=== PATIENT | male | born 1970 | race Caucasian/White ===

== ENCOUNTER 2017-03-05 14:13 | Emergency (ER) | payer BC ==
[2017-03-05 14:24] VITALS: BP 107/65
--- NOTE | 2017-03-05 14:47 | UC ---
Cardiac HPI - HPI Summary HPI Summary: This is a 46 yo gentleman with a smoking history and hypothyroidism who presents with c/o CP. He sustained a fall early Sat am where he tripped and fell into his metal bed frame, striking the frame with the L side of his chest. He reports some c/o SOB, but seems to be mostly related to pleuritic pain. He denies cough, abd pain, n/v. - History of Current Complaint Chief Complaint: UCChestPain Stated Complaint: CHEST INJURY S/P FALL - Allergy/Home Medications Allergies/Adverse Reactions: Allergies Allergy/AdvReac Type Severity Reaction Status Date / Time No Known Allergies Allergy Verified 03/05/17 14:24 PMH/Surg Hx/FS Hx/Imm Hx Endocrine History: Hypothyroidism Other History Of: Negative For: HIV, Hepatitis B, Hepatitis C, Anticoagulant Therapy - Surgical History Surgical History: None - Family History Known Family History: Positive: Cardiac Disease, Hypertension - Social History Alcohol Use: Occasionally Alcohol Amount: 1 can of beer qd Substance Use Type: None Smoking Status (MU): Light Every Day Tobacco Smoker Type: Cigarettes Amount Used/How Often: 3 CIGS per day Length of Time of Smoking/Using Tobacco: 30yrs When Did the Patient Quit Smoking/Using Tobacco: PT CURRENTLY USING CHANTIX Household Exposure Type: Cigarettes Review of Systems Constitutional: Negative Skin: Negative Eyes: Negative ENT: Negative Respiratory: Shortness Of Breath Cardiovascular: Negative Gastrointestinal: Negative Genitourinary: Negative Motor: Negative Neurovascular: Negative Musculoskeletal: Negative Neurological: Negative Psychological: Negative All Other Systems Reviewed And Are Negative: Yes Physical Exam Triage Information Reviewed: Yes Appearance: Well-Appearing Vital Signs: Initial Vital Signs Temp 98.9 F 03/05/17 14:21 Pulse 81 03/05/17 14:21 Resp 14 03/05/17 14:21 BP 107/65 03/05/17 14:21 Pulse Ox 99 03/05/17 14:21 Vital Signs Reviewed: Yes Neck: Positive: Supple, Nontender Respiratory: Positive: Normal breath sounds, Other: - TTP over L chest wall. Negative: Respiratory distress Cardiovascular: Positive: RRR, No Murmur Abdomen Description: Positive: Nontender Diagnostics - Laboratory Diagnostic Studies Completed/Ordered: Rib/CXR - No fracture or pneumothorax, NAD - Assessment/Plan Course Of Treatment: This is a 46 yo gentleman with h/o smoking who presented with c/o L sided CP after sustaining a fall ~2d prior. XR neg for fx and area was TTP. Recommend treating for chest wall pain, no evidence of cardiothoracic disease - Differential Diagnoses - Chest Pain Differential Diagnosis/HQI/PQRI: Angina, Chest Wall, GI Disease - Clinical Impression Provider Diagnoses: 1. Chest wall contusion - treat symptomatically Discharge - Discharge Plan Condition: Stable Disposition: HOME Prescriptions: Hydrocodone-Acetaminophen [Hydrocodone/Acetaminophen 5-325 mg] 1 tab PO Q6H PRN #20 tab MDD 4 tabs PRN Reason: Pain Patient Education Materials: Chest Wall Pain (ED) Referrals: No Primary Care Phys,NOPCP [Primary Care Provider] - Additional Instructions: Activity: As tolerated Instructions: 1. Apply ice to painful area 2. Use ibuprofen as needed for pain relief 3. Use additional pain medication if needed, but do not drive or mix with alcohol
--- NOTE | 2017-03-05 15:09 | RAD ---
Indication: LEFT anterior lower rib pain post fall. History of tobacco use. Comparison: February 20, 2015 Technique: Dual energy PA chest and 3 view LEFT unilateral rib series. Report: Elevated lung volumes and rarefaction of the interstitial markings. Multiple small calcified granulomas noted without change. No suspicious focal pulmonary lesion, alveolar consolidation, pleural effusion, pneumothorax. The heart, pulmonary vasculature, and mediastinal contours are unremarkable Skin marker noted at the level of the LEFT sixth rib laterally. No conspicuous LEFT rib fracture or soft tissue contour abnormality evident. IMPRESSION: 1. No LEFT rib fracture or pneumothorax evident. 2. Stigmata of obstructive lung disease and previous granulomatous disease.
== END 2017-03-05 15:32 | disposition home or self-care (01) ==
LOC: UCCORT 14:13
DX: S20.212A Contusion of left front wall of thorax, initial encounter (principal); W01.190A Fall on same level from slipping, tripping and stumbling with subsequent striking against furniture, initial encounter; Y92.9 Unspecified place or not applicable; F17.210 Nicotine dependence, cigarettes, uncomplicated; R91.8 Other nonspecific abnormal finding of lung field
CPT/HCPCS: 99212; G0463

== ENCOUNTER 2017-08-18 14:29 | Emergency (ER) | payer SELFPAY | END 2017-08-18 15:37 | disposition left against medical advice (07) | LOC: UCCORT 14:29 | DX: R09.89 Other specified symptoms and signs involving the circulatory and respiratory systems (principal); Z53.21 Procedure and treatment not carried out due to patient leaving prior to being seen by health care provider ==

== ENCOUNTER 2017-08-19 14:11 | Emergency (ER) | payer BC ==
[2017-08-19 14:41] VITALS: BP 104/72
--- NOTE | 2017-08-23 20:53 | UC ---
Throat Pain/Nasal Michi HPI - HPI Summary HPI Summary: 89 year old presents with sinus congestion, cough and sore throat. - History of Current Complaint Chief Complaint: UCRespiratory Stated Complaint: CHEST CONGESTION/SINUS/COUGH Time Seen by Provider: 08/19/17 14:24 Hx Obtained From: Patient Onset/Duration: Sudden Onset Severity: Moderate Pain Intensity: 0 Pain Scale Used: 0-10 Numeric Cough: Nonproductive Associated Signs & Symptoms: Positive: Dysphagia - Allergies/Home Medications Allergies/Adverse Reactions: Allergies Allergy/AdvReac Type Severity Reaction Status Date / Time No Known Allergies Allergy Verified 08/19/17 14:41 PMH/Surg Hx/FS Hx/Imm Hx Previously Healthy: Yes Other History Of: Negative For: HIV, Hepatitis B, Hepatitis C, Anticoagulant Therapy - Surgical History Surgical History: None - Family History Known Family History: Positive: Cardiac Disease, Hypertension - Social History Alcohol Use: Daily Alcohol Amount: 1 can of beer qd Substance Use Type: None Smoking Status (MU): Light Every Day Tobacco Smoker Type: Cigarettes Amount Used/How Often: 3 CIGS per day Length of Time of Smoking/Using Tobacco: 30yrs When Did the Patient Quit Smoking/Using Tobacco: PT CURRENTLY USING CHANTIX Household Exposure Type: Cigarettes Review of Systems Constitutional: Negative Skin: Negative Eyes: Negative ENT: Sore Throat, Nasal Discharge, Sinus Congestion, Sinus Pain/Tenderness Respiratory: Negative Cardiovascular: Negative Gastrointestinal: Negative Genitourinary: Negative Motor: Negative Neurovascular: Negative Musculoskeletal: Negative Neurological: Negative Psychological: Negative All Other Systems Reviewed And Are Negative: Yes Physical Exam Triage Information Reviewed: Yes Vital Signs: Initial Vital Signs Temp 37.7 C 08/19/17 14:38 Pulse 92 08/19/17 14:38 Resp 18 08/19/17 14:38 BP 104/72 08/19/17 14:38 Pulse Ox 99 08/19/17 14:38 Vital Signs Reviewed: Yes Eye Exam: Normal ENT: Positive: Pharyngeal erythema, Nasal congestion, Nasal drainage Dental Exam: Normal Neck exam: Normal Neck: Positive: 1 Respiratory: Positive: Rhonchi, Wheezing Cardiovascular Exam: Normal Abdominal Exam: Normal Musculoskeletal Exam: Normal Neurological Exam: Normal Psychological Exam: Normal Skin Exam: Normal Throat Pain/Nasal Course/Dx - Differential Dx/Diagnosis Provider Diagnoses: sinusitis. cough. post nasal drip Discharge - Discharge Plan Condition: Stable Disposition: HOME Prescriptions: Azithromyxin RUDY (NF) [Z-Rudy (Zithromax) 250 mg tabs #6] 2 tab PO .TODAY, THEN 1 DAILY #6 tab Guaifenesin-Codeine [Cheratussin AC] 1 teasp PO Q8H PRN #120 ml MDD 15 ml PRN Reason: Cough LoraTADine TAB(NF) [Claritin 10 MG TAB(NF)] 10 mg PO DAILY #30 tab Methylprednisolone [Medrol Dosepak 4 MG*] 4 mg PO .SEE RUDY INSTRUCTION #21 tab Patient Education Materials: Sinusitis (ED), Acute Cough (ED) Referrals: No Primary Care Phys,NOPCP [Primary Care Provider] -
== END 2017-08-19 14:55 | disposition home or self-care (01) ==
LOC: UCCORT 14:11
DX: J32.9 Chronic sinusitis, unspecified (principal); R05 Cough; J02.9 Acute pharyngitis, unspecified; F17.210 Nicotine dependence, cigarettes, uncomplicated
CPT/HCPCS: 99212; G0463

== ENCOUNTER 2017-09-06 11:05 | Emergency (ER) | payer BC ==
[2017-09-06 11:18] VITALS: BP 113/72
--- NOTE | 2017-09-06 11:48 | UC ---
Respiratory Complaint HPI - HPI Summary HPI Summary: 47 yo male with cough x 3 weeks now with right sided CP can't lay on right side due to pain no f/c no SOB - History of Current Complaint Chief Complaint: UCGeneralIllness Stated Complaint: RIB COMPAINT Time Seen by Provider: 09/06/17 11:27 Hx Obtained From: Patient Onset/Duration: Gradual Onset, Lasting Weeks Timing: Constant Severity Initially: Mild Severity Currently: Moderate Pain Intensity: 7 Pain Scale Used: 0-10 Numeric Character: Cough: Nonproductive Aggravating Factors: Nothing - Allergies/Home Medications Allergies/Adverse Reactions: Allergies Allergy/AdvReac Type Severity Reaction Status Date / Time No Known Allergies Allergy Verified 08/19/17 14:41 PMH/Surg Hx/FS Hx/Imm Hx Previously Healthy: Yes Other History Of: Negative For: HIV, Hepatitis B, Hepatitis C, Anticoagulant Therapy - Surgical History Surgical History: None - Family History Known Family History: Positive: Cardiac Disease, Hypertension, Other - dad - pancreas [place] - Social History Alcohol Use: Daily Alcohol Amount: 1 can of beer qd Substance Use Type: None Smoking Status (MU): Light Every Day Tobacco Smoker Type: Cigarettes Amount Used/How Often: 3 CIGS per day Length of Time of Smoking/Using Tobacco: 30yrs When Did the Patient Quit Smoking/Using Tobacco: PT CURRENTLY USING CHANTIX Household Exposure Type: Cigarettes Review of Systems Constitutional: Negative Skin: Negative Eyes: Negative ENT: Negative Respiratory: Cough Cardiovascular: Chest Pain Gastrointestinal: Negative Genitourinary: Negative Motor: Negative Neurovascular: Negative Musculoskeletal: Negative Neurological: Negative Psychological: Negative Is Patient Immunocompromised?: No All Other Systems Reviewed And Are Negative: Yes Physical Exam Triage Information Reviewed: Yes Appearance: Well-Appearing, No Pain Distress, Well-Nourished Vital Signs: Initial Vital Signs Temp 98.2 F 09/06/17 11:14 Pulse 74 09/06/17 11:14 Resp 20 09/06/17 11:14 BP 113/72 09/06/17 11:14 Vital Signs Reviewed: Yes ENT: Positive: Hearing grossly normal. Negative: Nasal congestion, Nasal drainage, Tonsillar swelling, Tonsillar exudate, Muffled voice, Hoarse voice Neck: Positive: Supple, Nontender, No Lymphadenopathy Respiratory: Positive: Lungs clear, Normal breath sounds, No respiratory distress, No accessory muscle use. Negative: Chest non-tender Cardiovascular: Positive: RRR, No Murmur Musculoskeletal: Positive: ROM Intact, No Edema Neurological: Positive: Alert Psychological Exam: Normal Skin Exam: Normal UC Diagnostic Evaluation - Laboratory O2 Sat by Pulse Oximetry: 100 - normal/not hypoxic - Radiology Xray Interpretation: No Acute Changes Radiology Interpretation Completed By: ED Physician Respiratory Course/Dx - Differential Dx/Diagnosis Provider Diagnoses: right rib contusion/chest wall pain. post bronchitic cough Discharge - Discharge Plan Condition: Stable Disposition: HOME Prescriptions: Benzonatate CAP* [Tessalon CAP*] 100 - 200 mg PO TID PRN #28 cap PRN Reason: Cough HYDROcodone/ACETAMIN 5-325 MG* [[place] 5-325 TAB*] 1 tab PO Q4H PRN #14 tab MDD 2 PRN Reason: Pain Patient Education Materials: Rib Contusion (ED) Forms: *Work Release Referrals: [facility] [Outside] (call this number to find a local MD) Additional Instructions: recheck for new or worsening symptoms recheck in 1-2 weeks if not better continue naproxen Images Front/Back of Body, Lg (Chaves): 1 - tender
--- NOTE | 2017-09-06 13:00 | RAD ---
INDICATION: Right rib injury. COMPARISON: Comparison is made with a prior chest x-ray study from February 20, 2015. TECHNIQUE: 5 views of the right ribs and dual-energy PA views of the chest were obtained. FINDINGS: No fracture or significant focal osseous abnormality is seen. The heart is within normal limits in size. The lungs are hyperinflated and clear. There is bilateral apical pleural cystic change and scarring. No pneumothorax or pleural effusion is seen. IMPRESSION: NO EVIDENCE FOR FRACTURE.
== END 2017-09-06 13:00 | disposition home or self-care (01) ==
LOC: UCEAST 11:05
DX: S20.20XA Contusion of thorax, unspecified, initial encounter (principal); X50.3XXA Overexertion from repetitive movements, initial encounter; Y93.9 Activity, unspecified; Y92.9 Unspecified place or not applicable; R07.89 Other chest pain; R05 Cough; F17.210 Nicotine dependence, cigarettes, uncomplicated
CPT/HCPCS: 93005; 99212; G0463

== ENCOUNTER 2019-03-08 12:50 | Emergency (ER) | payer BC ==
[2019-03-08 13:10] VITALS: BP 108/65
--- NOTE | 2019-03-08 13:30 | UC ---
Respiratory Complaint HPI - HPI Summary HPI Summary: Non-productive cough and fever since . Pt states he started feeling sweaty. He is a smoker. He has a severe headache today especially when he coughs. He does get frequent headaches but states this one is worse than usual. - History of Current Complaint Chief Complaint: UCHalexidamaximiliano Stated Complaint: FEVER,HEADACHE Time Seen by Provider: 03/08/19 13:17 Hx Obtained From: Patient Onset/Duration: Gradual Onset Timing: Constant Severity Initially: Mild Severity Currently: Mild Pain Intensity: 2 Character: Cough: Nonproductive Aggravating Factors: Nothing Alleviating Factors: Nothing Associated Signs And Symptoms: Positive: Fever, Chills, Nasal Congestion - Allergies/Home Medications Allergies/Adverse Reactions: Allergies Allergy/AdvReac Type Severity Reaction Status Date / Time No Known Allergies Allergy Verified 03/08/19 13:10 Home Medications: Home Medications Acetaminophen TAB* [Tylenol TAB*] 650 mg PO ONCE PRN 03/08/19 [History Confirmed 03/08/19] Naproxen Sodium [Naproxen 220 mg] 220 mg PO Q6H PRN 03/08/19 [History Confirmed 03/08/19] PMH/Surg Hx/FS Hx/Imm Hx Previously Healthy: Yes Endocrine History: Thyroid Disease Other History Of: Negative For: HIV, Hepatitis B, Hepatitis C, Anticoagulant Therapy - Surgical History Surgical History: Yes Surgery Procedure, Year, and Place: t/a - Family History Known Family History: Positive: Cardiac Disease, Hypertension, Other - dad - pancreas [place] - Social History Alcohol Use: Occasionally Alcohol Amount: 1 can of beer qd Substance Use Type: None Smoking Status (MU): Light Every Day Tobacco Smoker Type: Cigarettes Amount Used/How Often: 3 CIGS per day Length of Time of Smoking/Using Tobacco: 30yrs When Did the Patient Quit Smoking/Using Tobacco: PT CURRENTLY USING CHANTIX Household Exposure Type: Cigarettes Review of Systems All Other Systems Reviewed And Are Negative: Yes Constitutional: Positive: Fever, Chills Respiratory: Positive: Cough - Non-productive Neurological: Positive: Headache Is Patient Immunocompromised?: No Physical Exam Triage Information Reviewed: Yes Appearance: Well-Appearing, No Pain Distress, Well-Nourished Vital Signs: Initial Vital Signs Temp 98.8 F 03/08/19 13:02 Pulse 77 03/08/19 13:02 Resp 18 03/08/19 13:02 BP 108/65 03/08/19 13:02 Pulse Ox 99 03/08/19 13:02 Vital Signs Reviewed: Yes Eyes: Positive: Conjunctiva Clear - EOMI, PERRLA ENT: Positive: Pharynx normal, TMs normal, Uvula midline Neck: Positive: Supple, Nontender, No Lymphadenopathy Respiratory: Positive: Lungs clear, Normal breath sounds, No respiratory distress, No accessory muscle use Cardiovascular: Positive: RRR, No Murmur, Pulses Normal, Brisk Capillary Refill Abdomen Description: Positive: Nontender, No Organomegaly, Soft. Negative: CVA Tenderness (R), CVA Tenderness (L) Bowel Sounds: Positive: Present Musculoskeletal: Positive: Strength Intact, ROM Intact, No Edema, Other: - Good periph pulses, cap refill and neurosensation. Full ROM. Neurological: Positive: Alert, Muscle Tone Normal, Other: - Rhomberg negative, good finger to nose bilaterally, good arm and leg strength against resistance, normal dystidiokinesis, good heel to toe forward and backward, good heel to chavez bilaterally, ambulates normally. Psychological Exam: Normal Skin Exam: Normal Respiratory Course/Dx - Course Course Of Treatment: CXR: REPORT: Elevated lung volumes. Chronic mild linear scarring at the RIGHT lung apex. Suggestion of small calcified granulomas at the lower lung zones. No focal pulmonary lesion, compelling alveolar consolidation, pleural effusion, pneumothorax. The heart, pulmonary vasculature, and mediastinal contours are unremarkable. IMPRESSION: #. Stigmata of probable obstructive lung disease. No acute pulmonary or cardiac process evident. I discussed this with Dr. Paez. I am referring pt. to the Emergency Room for further evaluation of the headache which is different than his normal headache. He is not much of a detailed historian, first saying the headache was sudden, then saying it was gradual on . He and his are agreeable to going to the ER, but by private car. They refuse the ambulance. - Differential Dx/Diagnosis Provider Diagnosis: Headache Discharge - Sign-Out/Discharge Documenting (check all that apply): Patient Departure All imaging exams completed and their final reports reviewed: Yes - Discharge Plan Condition: Fair Disposition: HOME-RECOMMEND TO ED Referrals: [facility] [Outside] No Primary Care Phys,NOPCP [Primary Care Provider] - Additional Instructions: Go to the Emergency Room for further from here for care for your headache - Billing Disposition and Condition Condition: FAIR Disposition: Home-Recommend to ED
== END 2019-03-08 14:14 | disposition home health service (06) ==
LOC: UCCORT 12:50
DX: R51 Headache (principal); F17.210 Nicotine dependence, cigarettes, uncomplicated
CPT/HCPCS: 71046; 99212; G0463